=== PATIENT | female | born 1990 | race Caucasian/White ===

== ENCOUNTER 2018-04-26 07:56 | Day surgery (SDC) | payer BC ==
[2018-04-22 16:43] LABS: BASOPHILS # (AUTO) 0.1 K/uL (0.00-0.22); BASOPHILS % (AUTO) 0.7 % (0.0-2.0); EOSINOPHILS # (AUTO) 0.1 K/uL (0-0.4); EOSINOPHILS % (AUTO) 1.2 % (0.0-4.0); HEMATOCRIT 41.7 % (36-48); HEMOGLOBIN 13.8 g/dL (12.0-16.0); LYMPHOCYTES % (AUTO) 37.3 % (20.5-51.1); MEAN CORPUSCULAR HEMOGLOBIN 30 pg (27-31); MEAN CORPUSCULAR HGB CONC 33 g/dL (33-37); MEAN CORPUSCULAR VOLUME 90.8 fL (80-94); MONOCYTES # (AUTO) 0.3 K/uL (0.8-1.0); MONOCYTES % (AUTO) 3.6 % (1.7-9.3); NEUTROPHILS # (AUTO) 4.6 K/uL (1.8-7.7); NEUTROPHILS % (AUTO) 57.2 % (42.2-75.2); PLATELET COUNT (AUTO) 250 K/uL (140-450); RED BLOOD CELL COUNT(AUTO) 4.59 MIL/uL (4.20-5.40); RED CELL DISTRIBUTION WIDTH 12.7 % (11.6-13.7)
[2018-04-22 17:34] LABS: ALBUMIN 4.4 g/dL (3.4-5.0); ANION GAP 12.8 (8-16); CARBON DIOXIDE 29.1 mmol/L (21-32); CREATININE 0.9 mg/dL (0.6-1.3); POTASSIUM 3.9 mmol/L (3.5-5.1); TOTAL BILIRUBIN 1.2 mg/dL (0.0-1.0)
[~2018-04-26] VITALS: Ht 170.2 cm; Wt 68.5 kg
[2018-04-26] MEDS ORDERED: CEFAZOLIN SODIUM 1 GM/D5W PM 50 ML IV ONE (08:25)
[2018-04-26] MEDS ORDERED: SEVOFLURANE 250 ML BTL INH ONE (08:55)
[2018-04-26] MEDS ORDERED: KETOROLAC 30 MG/ML VIAL ONE (08:55)
[2018-04-26] MEDS ORDERED: PROPOFOL 200 MG/20 ML VIAL IV ONE (08:55)
[2018-04-26] MEDS ORDERED: ONDANSETRON 4 MG/2 ML VIAL ONE (08:55)
[2018-04-26] MEDS ORDERED: DEXAMETHASONE 4 MG/ML VIAL ONE (08:55)
[2018-04-26] MEDS ORDERED: MIDAZOLAM 2 MG/2 ML VIAL ONE (08:59)
[2018-04-26] MEDS ORDERED: fentaNYL 0.05 MG/ML VIAL ONE (09:00)
[2018-04-26] MEDS ORDERED: MEPERIDINE 50 MG/ML SYR ONE (09:00)
[2018-04-26] MEDS ORDERED: HYDROmorphone 1 MG/ML AMP IVP PRN ×2 (10:00→10:25)
[2018-04-26] MEDS ORDERED: ONDANSETRON 4 MG/2 ML VIAL IV PRN (10:00)
[2018-04-26] MEDS ORDERED: HYDROcodone/APAP 5/325 MG 1 TAB TAB PO PRN (10:00)
[2018-04-26] MEDS ORDERED: MORPHINE SULFATE 4 MG/ML SYR IV PRN (10:00)
[2018-04-26] MEDS ORDERED: MORPHINE SULFATE 2 MG/ML SYR IVP PRN (10:00)
[2018-04-26] MEDS ORDERED: BUPIVACAINE-MPF/EPI 0.25% 30 ML VIAL INJ ONE (10:10)
[2018-04-26] MEDS ORDERED: LACTATED RINGERS 1,000 ML IV SCH (10:23)
[2018-04-26] MEDS ORDERED: MEPERIDINE 25 MG/ML SYR IVP PRN (10:25)
[2018-04-26] MEDS ORDERED: diphenhydrAMINE 50 MG/ML VIAL IVP PRN (10:25)
[2018-04-26] MEDS ORDERED: ONDANSETRON 4 MG/2 ML VIAL IVP PRN (10:25)
[2018-04-26] MEDS ORDERED: HYDROmorphone PFS 2 MG/ML SYR ONE (10:32)
== END 2018-04-26 11:25 | disposition home or self-care (01) ==
LOC: MDS 07:56 → MMU 07:56 → MDS 11:25
PROVIDERS: ATTEND Surgery
DX: D24.2 Benign neoplasm of left breast (principal); Z98.890 Other specified postprocedural states
CPT/HCPCS: 19120; 36415; 71045; 80053; 81025; 85025; 88305; J0690; J1100; J1170; J1885; J2175; J2250; J2405; J2704; J3010; J3490; J7120

== ENCOUNTER 2022-07-21 11:33 | Inpatient (IN) | payer MEDICAID ==
[~2022-07-21] VITALS: Ht 170.2 cm; Wt 91.6 kg
[2022-07-21] MEDS ORDERED: PREN-371 PO (11:48)
[2022-07-21] MEDS ORDERED: METHYLERGONOVINE 0.2 MG/ML AMP IM PRN (11:50)
[2022-07-21] MEDS ORDERED: ONDANSETRON 4 MG/2 ML VIAL IVP PRN (11:50)
[2022-07-21] MEDS ORDERED: MORPHINE SULFATE 5 MG/ML VIAL IVP PRN (11:50)
[2022-07-21] MEDS ORDERED: OXYTOCIN 20 UNITS in LACTATED RINGERS 1,000 ML IV SCH (11:50)
[2022-07-21 12:00] VITALS: BP 109/69
[2022-07-21] MEDS: LACTATED RINGERS 1,000 ML IV SCH ×2 (12:50→19:14)
[2022-07-21] MEDS ORDERED: OXYTOCIN 20 UNITS/LR PREMIX 1,000 ML IV ONE (12:52)
[2022-07-21 13:29] LABS: BASOPHILS % (AUTO) 0.2 % (0.0-2.0); EOSINOPHILS # (AUTO) 0.1 K/uL (0-0.4); HEMATOCRIT 38.6 % (36-48); HEMOGLOBIN 13.1 g/dL (12.0-16.0); LYMPHOCYTES # (AUTO) 1.5 K/uL (2.5-16.5); LYMPHOCYTES % (AUTO) 19.6 % (20.5-51.1); MEAN CORPUSCULAR HEMOGLOBIN 31 pg (27-31); MEAN CORPUSCULAR HGB CONC 34 g/dL (33-37); MEAN CORPUSCULAR VOLUME 90.8 fL (80-94); MONOCYTES # (AUTO) 0.5 K/uL (0.8-1.0); MONOCYTES % (AUTO) 7.1 % (1.7-9.3); NEUTROPHILS # (AUTO) 5.5 K/uL (1.8-7.7); NEUTROPHILS % (AUTO) 72.1 % (42.2-75.2); PLATELET COUNT (AUTO) 173 K/uL (140-450); RED BLOOD CELL COUNT(AUTO) 4.26 MIL/uL (4.20-5.40); RED CELL DISTRIBUTION WIDTH 13.4 % (11.6-13.7); WHITE BLOOD COUNT (AUTO) 7.6 K/uL (4.8-10.8)
[2022-07-21 13:35] LABS: APPEARANCE,URINE HAZY (CLEAR); BILIRUBIN,URINE NEGATIVE (NEGATIVE); BLOOD, URINE TRACE-I (NEGATIVE); COLOR,URINE YELLOW (YELLOW); LEUKOCYTE ESTERASE ,URINE 1+ (NEGATIVE); NITRITE, URINE NEGATIVE (NEGATIVE); UGLUCOSE NEGATIVE (NEGATIVE)
[2022-07-21 13:39] LABS: PROTHROMBIN TIME 8.7 secs (10.8-13.4)
[2022-07-21 13:43] LABS: RBC,URINE NONE SEEN /HPF (0-5)
[2022-07-21 13:46] LABS: ALBUMIN 2.7 g/dL (3.4-5.0); ANION GAP 14.1 (8-16); CARBON DIOXIDE 22.5 mmol/L (21-32); CREATININE 0.5 mg/dL (0.6-1.3); POTASSIUM 3.6 mmol/L (3.5-5.1); TOTAL BILIRUBIN 0.7 mg/dL (0.0-1.0)
[2022-07-21] MEDS ORDERED: MORPHINE SULFATE 10 MG/ML VIAL ONE (22:07)
[2022-07-22] MEDS ORDERED: MORPHINE SULFATE 10 MG/ML VIAL ONE (02:18)
[2022-07-22 02:22] VITALS: BP 129/95
[2022-07-22] MEDS: LACTATED RINGERS 1,000 ML IV SCH ×4 (02:26→18:29)
[2022-07-22] MEDS ORDERED: ROPIVACAINE 0.2%/NS PREMIX 200 ML EPI ONE ×2 (07:27→20:38)
[2022-07-22] MEDS ORDERED: fentaNYL citrate 0.05 MG/ML VIAL ONE (07:28)
--- NOTE | 2022-07-22 16:38 | NUR ---
PATIENT HAS BEEN SCREENED AND CATEGORIZED LOW NUTRITION RISK. PATIENT WILL BE SEEN WITHIN 7 DAYS OF ADMISSION. 07/28/22 REVIEWED BY RADHA JOHNSON RD
[2022-07-22] MEDS ORDERED: BENZOCAINE/MENTHOL 20%-0.5% 60 GM CAN TP PRN (22:55)
[2022-07-22] MEDS ORDERED: METHYLERGONOVINE 0.2 MG/ML AMP IM PRN (22:55)
[2022-07-22] MEDS ORDERED: METHYLERGONOVINE 0.2 MG TAB PO PRN (22:55)
[2022-07-22] MEDS ORDERED: oxyCODONE/APAP 5/325 MG 1 TAB TAB PO PRN (22:55)
[2022-07-22] MEDS ORDERED: TEMAZEPAM 15 MG CAP PO PRN (22:55)
[2022-07-22] MEDS ORDERED: OXYTOCIN 20 UNITS/LR PREMIX 1,000 ML IV ONE (22:56)
--- NOTE | 2022-07-22 23:00 | NUR ---
RESPONDED TO RAPID AT L&D. RN REPORTED PT IS HAVING LOW B/P 74/50. PT LOOKS ANXIOUS. INTERVENTION WAS STARTED. PLACED PT ON SIMPLE MASK @10L SPO2 99%. BP INCREASED TO 94/64. RN WILL CONTINUE TO MONITOR PT.
[2022-07-22] MEDS ORDERED: LORazepam 2 MG/ML VIAL IM/IVP SCH (23:20)
[2022-07-22] MEDS ORDERED: ceFAZolin 2,000 MG VIAL ONE (23:27)
[2022-07-23] MEDS: IBUPROFEN 800 MG TAB PO PRN ×2 (06:32→14:43)
[2022-07-23] MEDS ORDERED: ceFAZolin 2,000 MG VIAL ONE (07:56)
[2022-07-23 10:49] LABS: HEMATOCRIT 20.8 % (36-48); HEMOGLOBIN 7.1 g/dL (12.0-16.0)
[2022-07-23] MEDS ORDERED: bisacodyL 5 MG TABEC PO SCH (21:00)
[2022-07-23] MEDS ORDERED: DOCUSATE SOD/SENNA 50/8.6 MG 1 TAB PO SCH (21:00)
[2022-07-23] MEDS: oxyCODONE/APAP 5/325 MG 1 TAB TAB PO PRN (21:10)
[2022-07-24] MEDS: oxyCODONE/APAP 5/325 MG 1 TAB TAB PO PRN ×2 (04:41→12:10)
== END 2022-07-24 16:45 | disposition home or self-care (01) | DRG 542 ==
LOC: MLD 11:33 → MFCC 07-23 00:50
PROVIDERS: ADMIT Obstetrics & Gynecology; ATTEND Obstetrics & Gynecology
PROC: 10D07Z6 Extraction of Products of Conception, Vacuum, Via Natural or Artificial Opening (ICD-10-PCS; principal; 2022-07-22)
PROC: 0DQP0ZZ Repair Rectum, Open Approach (ICD-10-PCS; 2022-07-22)
PROC: 10907ZC Drainage of Amniotic Fluid, Therapeutic from Products of Conception, Via Natural or Artificial Opening (ICD-10-PCS; 2022-07-22)
PROC: 3E033VJ Introduction of Other Hormone into Peripheral Vein, Percutaneous Approach (ICD-10-PCS; 2022-07-22)
PROC: 0W8NXZZ Division of Female Perineum, External Approach (ICD-10-PCS; 2022-07-22)
PROC: 3E0R3BZ Introduction of Anesthetic Agent into Spinal Canal, Percutaneous Approach (ICD-10-PCS; 2022-07-22)
PROC: 00HU33Z Insertion of Infusion Device into Spinal Canal, Percutaneous Approach (ICD-10-PCS; 2022-07-22)
DX: O36.63X0 Maternal care for excessive fetal growth, third trimester, not applicable or unspecified (principal); Z37.0 Single live birth; R71.0 Precipitous drop in hematocrit; O70.3 Fourth degree perineal laceration during delivery; O48.0 Post-term pregnancy; Z20.822 Contact with and (suspected) exposure to COVID-19; Z3A.40 40 weeks gestation of pregnancy
CPT/HCPCS: 36415; 51702; 76815; 80053; 81001; 85018; 85025; 85610; 85730; 86592; 86886; 86900; 86901; 87086; J0690; J2270; J2405; J2590; J2795; J3010; J7060; J7120; Q0092